=== PATIENT | female | born 1960 | race Two or more races ===

== ENCOUNTER 2018-10-24 19:37 | Emergency (ER) | payer OTHER ==
[2018-10-24 19:50] LABS: ADD MAN DIFF? NO
[2018-10-24] MEDS: SOD CHLORIDE 0.9% 1,000 ML IV (19:51)
[2018-10-24] MEDS: LORAZEPAM 2 MG INJ IV (19:51)
[2018-10-24 19:53] LABS: ABNORMAL IP MESSAGE 1; BASOPHILS % 0.1 % (0.0-2.0); HEMATOCRIT 39.6 % (37.0-47.0); HEMOGLOBIN 13.3 g/dl (12.0-16.0); LYMPHOCYTES # 1.4 10^3/ul (0.8-2.9); LYMPHOCYTES % 17.6 % (15.0-51.0); MEAN CORPUSCULAR HEMOGLOBIN 31.7 pg (29.0-33.0); MEAN CORPUSCULAR HGB CONC 33.6 g/dl (32.0-37.0); MEAN CORPUSCULAR VOLUME 94.5 fl (82.0-101.0); MEAN PLATELET VOLUME 11.6 fl (7.4-10.4); MONOCYTE # 0.2 10^3/ul (0.3-0.9); MONOCYTES % 2.8 % (0.0-11.0); NEUTROPHIL # 6.3 10^3/ul (1.6-7.5); NEUTROPHILS % 79.1 % (39.0-77.0); RED BLOOD COUNT 4.19 10^6/ul (4.20-5.40); RED CELL DISTRIBUTION WIDTH 14.3 % (11.5-14.5)
[2018-10-24 19:57] LABS: POSITIVE DIFF @See below
[2018-10-24 20:17] LABS: PLATELET COUNT 59 10^3/UL (140-415)
[2018-10-24 20:22] LABS: ANION GAP 15 (5-13); BLOOD UREA NITROGEN 10 mg/dl (7-20); CALCIUM 8.2 mg/dl (8.4-10.2); CARBON DIOXIDE 18 mmol/L (21-31); CHLORIDE 104 mmol/L (97-110); CREATININE 0.57 mg/dl (0.44-1.00); Estimated GFR > 60 mL/min (>60); GLUCOSE 190 mg/dl (70-220); POTASSIUM 4.3 mmol/L (3.5-5.1); SODIUM 137 mmol/L (135-144)
[2018-10-24 20:25] LABS: ETHANOL < 10.0 mg/dl (0-0); PHENYTOIN (DILANTIN) < 3.0 ug/ml (10.0-20.0)
[2018-10-24 20:30] LABS: VALPROATE < 10 ug/ml (50-100)
[2018-10-24] MEDS: LABETALOL HCL 20MG INJ IV (21:13)
== END 2018-10-24 22:11 | disposition home or self-care (01) ==
LOC: E/R 19:37
DX: R56.9 Unspecified convulsions (principal); I10 Essential (primary) hypertension; R40.2142 Coma scale, eyes open, spontaneous, at arrival to emergency department; R40.2342 Coma scale, best motor response, flexion withdrawal, at arrival to emergency department; R40.2242 Coma scale, best verbal response, confused conversation, at arrival to emergency department
CPT/HCPCS: 36415; 70450; 73562; 80048; 80164; 80185; 80307; 85025; 93005; 96374; 96375; 99285-25